=== PATIENT | male | born 1975 | race African-American/Black ===

== ENCOUNTER 2017-06-12 22:41 | Emergency (ER) | payer OTHER ==
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
[2017-06-13 00:46] VITALS: BP 135/73
== END 2017-06-13 00:33 | disposition home or self-care (01) ==
LOC: ER 22:41
DX: M79.1 Myalgia (principal); M54.5 Low back pain; M54.2 Cervicalgia; V87.7XXA Person injured in collision between other specified motor vehicles (traffic), initial encounter
CPT/HCPCS: 99283